=== PATIENT | female | born 1965 | race Caucasian/White ===

== ENCOUNTER 2019-02-16 16:32 | Inpatient (IN) ==
[~2019-02-16 16:32] MED LIST: GLYCOPYRROLATE 0.4 MG/2 ML VIAL ONE; LIDOCAINE 2% 5 ML VIAL ONE; NEOSTIGMINE 10 MG/10 ML VIAL ONE; ONDANSETRON 4 MG/2 ML VIAL ONE; PHENYLEPHRINE 1 MG/10 ML SYRINGE IV ONE; PROPOFOL 200 MG/20 ML VIAL IV ONE; ROCURONIUM 100 MG/10 ML VIAL IV ONE
[2019-02-16] MEDS ORDERED: MORPHINE 4 MG/1 ML VIAL IV STA (18:10)
[2019-02-16] MEDS ORDERED: ASPIRIN 325 MG TABLET PO STA (18:10)
[2019-02-16] MEDS ORDERED: SODIUM CHLORIDE 0.9% 500 ML IV STA (18:10)
[2019-02-16] MEDS ORDERED: ONDANSETRON 4 MG/2 ML VIAL IV STA (18:10)
[2019-02-16] MEDS ORDERED: ALUM/MAG/SIMETH/LIDO VISC 1:1 30 ML BOTTLE PO STA (18:10)
[2019-02-16] MEDS ORDERED: NITROGLYCERIN 2% OINT 1 INCH/GM PACK TOP STA (18:10)
[2019-02-16] MEDS ORDERED: PANTOPRAZOLE 40 MG VIAL IV STA (18:11)
[2019-02-16 18:23] LABS: Basophils % 0.3 % (0.0-0.8); Eosinophils % 0.4 % (0.00-10.9); Hemoglobin 12.3 GM/DL (12.0-16.0); Immature Granulocytes % 0.4 %; Immature Granulocytes Absolute 0.04 #; Lymphocytes # 1.3 10*3/uL (1.4-4.0); Lymphocytes % 11.9 % (21.3-54.2); Mean Corpuscular HGB Conc 32.4 GM/DL (32-36); Mean Corpuscular Volume 89.4 FL (87-102); Mean Platelet Volume 9.6 FL (9.6-12.0); Monocytes % 6.4 % (1.7-12.7); Neutrophils % 80.6 % (38.7-73.9); Platelet Count 341 T/CUMM (130-400); Red Blood Count 4.25 MC/CUMM (3.8-5.5); Red Cell Distribution Width 12.4 % (9.3-17.3); White Blood Count 10.7 T/CUMM (4-12)
[2019-02-16 18:31] LABS: INR 0.9
[2019-02-16 19:02] LABS: Albumin 3.7 G/DL (3.4-5.0); Bilirubin,Total 0.5 MG/DL (0.2-1.0); Osmolality,Calculated 282.1 MOS/KG (273-304); Total Protein 7.2 G/DL (6.4-8.3)
[2019-02-16 20:07] LABS: Apearance,Urine CLEAR (Clear); Bacteria,Urine Few /HPF (Few); Bilirubin,Urine Negative (Negative); Blood, Urine Negative (Negative); Glucose,Urine (UA) Negative (Negative); Ketones,Urine Negative (Negative); Mucus,Urine Occasional /LPF (Occasional); Nitrite,Urine Negative (Negative); Protein,Urine Negative; RBC,Urine 1 /HPF (0-4); Squamous Epithelial Cell,Urine Occasional /HPF (0-10); Urine Color Yellow (Yellow); Urine Specific Gravity 1.006 (1.001-1.035); Urine Urobilinogen < 2.0 EU/DL (0.2-1.0)
[2019-02-16 20:13] LABS: Barbiturates Screen,Urine Negative (Negative); Benzodiazepines Screen,Urine Negative (Negative); Cannabinoid Screen,Urine Negative (Negative); Opiate Screen,Urine Positive (Negative); Phencyclidine Screen,Urine Negative (Negative)
[2019-02-16] MEDS ORDERED: HYDROmorphone 2 MG/1 ML VIAL IV PRN (21:43)
[2019-02-16] MEDS ORDERED: ACETAMINOPHEN 325 MG TABLET PO PRN (21:43)
[2019-02-16] MEDS: ASPIRIN EC 81 MG TABLET PO SCH (22:36)
[2019-02-16] MEDS: SODIUM CHLORIDE 0.9% 1,000 ML IV SCH (22:37)
[2019-02-16] MEDS: PIPERACILLIN/TAZOBACTAM 3,375 MG in SODIUM CHLORIDE 0.9% 100 ML IV SCH (22:48)
[2019-02-17 00:20] LABS: Basophils % 0.3 % (0.0-0.8); Eosinophils # 0.1 10*3/uL (0.0-0.87); Eosinophils % 0.8 % (0.00-10.9); Hematocrit 30.7 VOL% (35.7-47.0); Hemoglobin 10.1 GM/DL (12.0-16.0); Immature Granulocytes % 0.3 %; Immature Granulocytes Absolute 0.02 #; Lymphocytes # 1.6 10*3/uL (1.4-4.0); Lymphocytes % 26.3 % (21.3-54.2); Mean Corpuscular HGB Conc 32.9 GM/DL (32-36); Mean Corpuscular Volume 89.8 FL (87-102); Mean Platelet Volume 9.1 FL (9.6-12.0); Monocytes % 8.4 % (1.7-12.7); Neutrophils % 63.9 % (38.7-73.9); Platelet Count 261 T/CUMM (130-400); Red Blood Count 3.42 MC/CUMM (3.8-5.5); Red Cell Distribution Width 12.4 % (9.3-17.3); White Blood Count 6.1 T/CUMM (4-12)
[2019-02-17 00:57] LABS: Albumin 3.1 G/DL (3.4-5.0); Bilirubin,Total 0.7 MG/DL (0.2-1.0); Calcium 8.2 MG/DL (8.5-10.1); Osmolality,Calculated 285.8 MOS/KG (273-304); Total Protein 6.3 G/DL (6.4-8.3)
[2019-02-17] MEDS: PIPERACILLIN/TAZOBACTAM 3,375 MG in SODIUM CHLORIDE 0.9% 100 ML IV SCH ×3 (05:30→21:57)
[2019-02-17] MEDS: ONDANSETRON 4 MG/2 ML VIAL IV PRN ×2 (08:37→20:29)
[2019-02-17] MEDS: PANTOPRAZOLE 40 MG VIAL IV SCH (08:37)
[2019-02-17 11:44] LABS: Hepatitis B Core IgM Quant < 0.05 Index; Hepatitis B Surface Ag Quant < 0.10 Index; Hepatitis B Surface Ag Result Negative (Negative); Hepatitis C Virus Ab Quant < 0.02 Index; Hepatitis C Virus Ab Result Negative (Negative)
[2019-02-17] MEDS: POTASSIUM CHLORIDE 20 MEQ TABLET PO PRN ×3 (14:23→18:30)
[2019-02-17] MEDS: SODIUM CHLORIDE 0.9% 1,000 ML IV SCH (15:19)
[2019-02-17] MEDS: ASPIRIN EC 81 MG TABLET PO SCH (20:33)
[2019-02-18 01:39] LABS: Bilirubin,Direct 1.93 MG/DL (0.0-0.20); Bilirubin,Indirect 0.9 MG/DL (0.0-1.0); Bilirubin,Total 2.8 MG/DL (0.2-1.0); Total Protein 6.4 G/DL (6.4-8.3)
[2019-02-18] MEDS: SODIUM CHLORIDE 0.9% 1,000 ML IV SCH ×3 (03:23→19:33)
[2019-02-18] MEDS: POTASSIUM CHLORIDE 20 MEQ TABLET PO PRN (03:28)
[2019-02-18] MEDS: PIPERACILLIN/TAZOBACTAM 3,375 MG in SODIUM CHLORIDE 0.9% 100 ML IV SCH ×3 (06:30→21:45)
[2019-02-18 06:52] LABS: Basophils % 0.5 % (0.0-0.8); Eosinophils # 0.1 10*3/uL (0.0-0.87); Eosinophils % 1.1 % (0.00-10.9); Hematocrit 32.3 VOL% (35.7-47.0); Hemoglobin 10.2 GM/DL (12.0-16.0); Immature Granulocytes % 0.5 %; Immature Granulocytes Absolute 0.03 #; Lymphocytes # 1.6 10*3/uL (1.4-4.0); Lymphocytes % 24.8 % (21.3-54.2); Mean Corpuscular HGB Conc 31.6 GM/DL (32-36); Mean Platelet Volume 9.8 FL (9.6-12.0); Monocytes % 8.7 % (1.7-12.7); Neutrophils % 64.4 % (38.7-73.9); Platelet Count 266 T/CUMM (130-400); Red Blood Count 3.55 MC/CUMM (3.8-5.5); Red Cell Distribution Width 12.6 % (9.3-17.3); White Blood Count 6.6 T/CUMM (4-12)
[2019-02-18 07:25] LABS: Bilirubin,Total 3.1 MG/DL (0.2-1.0); Calcium 8.2 MG/DL (8.5-10.1); Osmolality,Calculated 285.8 MOS/KG (273-304); Total Protein 6.4 G/DL (6.4-8.3)
[2019-02-18] MEDS: PANTOPRAZOLE 40 MG VIAL IV SCH (10:14)
[2019-02-18] MEDS: ONDANSETRON 4 MG/2 ML VIAL IV PRN (20:51)
[2019-02-18] MEDS: ASPIRIN EC 81 MG TABLET PO SCH (21:45)
[2019-02-19] MEDS: SODIUM CHLORIDE 0.9% 1,000 ML IV SCH ×2 (05:22→19:39)
[2019-02-19] MEDS: PIPERACILLIN/TAZOBACTAM 3,375 MG in SODIUM CHLORIDE 0.9% 100 ML IV SCH ×3 (06:06→21:58)
[2019-02-19] MEDS: PANTOPRAZOLE 40 MG VIAL IV SCH (09:48)
[2019-02-19] MEDS: ASPIRIN EC 81 MG TABLET PO SCH (21:58)
[2019-02-20] MEDS: SODIUM CHLORIDE 0.9% 1,000 ML IV SCH ×3 (03:23→16:38)
[2019-02-20 05:45] LABS: Albumin 3.1 G/DL (3.4-5.0); Bilirubin,Direct 0.38 MG/DL (0.0-0.20); Bilirubin,Indirect 0.6 MG/DL (0.0-1.0); Total Protein 6.8 G/DL (6.4-8.3)
[2019-02-20] MEDS: PIPERACILLIN/TAZOBACTAM 3,375 MG in SODIUM CHLORIDE 0.9% 100 ML IV SCH ×5 (06:13→16:45)
[2019-02-20] MEDS ORDERED: INDOMETHACIN SUPP 50 MG SUPP RECTAL ONE (07:00)
[2019-02-20] MEDS: PANTOPRAZOLE 40 MG VIAL IV SCH (08:02)
[2019-02-20] MEDS ORDERED: fentaNYL 100 MCG/2 ML VIAL ONE (09:27)
[2019-02-20] MEDS ORDERED: MIDAZOLAM 2 MG/2 ML VIAL ONE (09:27)
[2019-02-20] MEDS ORDERED: GLUCAGON 1 MG VIAL ONE (11:03)
[2019-02-20] MEDS: ASPIRIN EC 81 MG TABLET PO SCH (20:32)
[2019-02-21] MEDS: PIPERACILLIN/TAZOBACTAM 3,375 MG in SODIUM CHLORIDE 0.9% 100 ML IV SCH ×3 (00:07→16:46)
[2019-02-21 05:18] LABS: Basophils % 0.3 % (0.0-0.8); Eosinophils % 0.5 % (0.00-10.9); Hematocrit 32.7 VOL% (35.7-47.0); Hemoglobin 10.9 GM/DL (12.0-16.0); Immature Granulocytes % 0.3 %; Immature Granulocytes Absolute 0.02 #; Lymphocytes # 1.5 10*3/uL (1.4-4.0); Lymphocytes % 22.6 % (21.3-54.2); Mean Corpuscular HGB Conc 33.3 GM/DL (32-36); Mean Corpuscular Volume 87.9 FL (87-102); Mean Platelet Volume 9.8 FL (9.6-12.0); Monocytes % 7.5 % (1.7-12.7); Neutrophils % 68.8 % (38.7-73.9); Platelet Count 319 T/CUMM (130-400); Red Blood Count 3.72 MC/CUMM (3.8-5.5); Red Cell Distribution Width 12.3 % (9.3-17.3); White Blood Count 6.6 T/CUMM (4-12)
[2019-02-21 06:08] LABS: Calcium 8.2 MG/DL (8.5-10.1); Osmolality,Calculated 274.4 MOS/KG (273-304); Total Protein 6.7 G/DL (6.4-8.3)
[2019-02-21] MEDS: PANTOPRAZOLE 40 MG VIAL IV SCH (08:09)
[2019-02-21] MEDS ORDERED: BUPIVACAINE 0.5% 50 ML VIAL ONE (11:50)
[2019-02-21] MEDS ORDERED: LIDOCAINE 1%/EPI INJ 20 ML VIAL ONE (11:50)
[2019-02-21] MEDS ORDERED: TISSUE ADHESIVE 1 EACH APPLICATOR TOP ONE (13:46)
[2019-02-21] MEDS ORDERED: MIDAZOLAM 2 MG/2 ML VIAL ONE (14:09)
[2019-02-21] MEDS ORDERED: PROPOFOL 200 MG/20 ML VIAL IV ONE (14:09)
[2019-02-21] MEDS ORDERED: SEVOFLURANE 1 UNIT/15 MINUTE INH ONE (14:09)
[2019-02-21] MEDS ORDERED: fentaNYL 100 MCG/2 ML VIAL ONE (14:09)
[2019-02-21] MEDS ORDERED: ONDANSETRON 4 MG/2 ML VIAL ONE ×2 (14:10→14:29)
[2019-02-21] MEDS ORDERED: PHENYLEPHRINE 1 MG/10 ML SYRINGE IV ONE (14:10)
[2019-02-21] MEDS ORDERED: ROCURONIUM 100 MG/10 ML VIAL IV ONE (14:10)
[2019-02-21] MEDS ORDERED: NEOSTIGMINE 10 MG/10 ML VIAL ONE (14:10)
[2019-02-21] MEDS ORDERED: GLYCOPYRROLATE 0.4 MG/2 ML VIAL ONE (14:10)
[2019-02-21] MEDS ORDERED: HYDROmorphone 2 MG/1 ML VIAL ONE (14:28)
[2019-02-21] MEDS ORDERED: ONDANSETRON 4 MG/2 ML VIAL IV PRN (14:29)
[2019-02-21] MEDS ORDERED: HYDROmorphone 2 MG/1 ML VIAL IV PRN (14:29)
[2019-02-21 19:27] VITALS: BP 121/66
== END 2019-02-21 18:15 | disposition home or self-care (01) | DRG 419 ==
LOC: N.ED 16:32 → N.EDINP 19:51 → N.3E 20:10
PROVIDERS: ADMIT Surgery; ATTEND Surgery
PROC: LAPCHOL (2019-02-21 12:38)